=== PATIENT | female | born 1990 | race Caucasian/White ===

== ENCOUNTER 2016-06-26 16:44 | Emergency (ER) | payer MEDICAID, OTHER ==
[~2016-06-26] VITALS: Ht 162.6 cm; Wt 73.9 kg
[~2016-06-26 16:44] MED LIST: PENI500T PO
[2016-06-26 17:15] VITALS: BP 126/83; PULSE 88; RESP 18; TEMP 98.9; O2SAT 99
--- NOTE | 2016-06-26 18:07 | PD ---
HPI Chief Complaint: Oral / Dental Pain or Problem Time Seen by Provider: 18:07 Travel History International Travel<30 days: No Contact w/Intl Traveler<30days: No Traveled to known affect area: No History of Present Illness HPI 25-year-old female presents the emergency department with dental pain , swelling, and history of recurrent dental abscess. States she is not in any significant pain and is requesting an antibiotic. Patient states her left lower jaw has become more swollen since this morning. She has been taking ibuprofen with fairly good relief. She has got an appointment with dental services this coming Saturday. She has used penicillin in the past with good results. She has no known drug allergies. PFSH Past Medical History Autoimmune Disease: No Blood Disorders: No Anxiety: No Depression: No Cardiovascular Problems: No Diminished Hearing: No Gastrointestinal Disorders: No Genitourinary: Yes Neurologic: No Respiratory: No ?: Not LMP: LAST WEEK Past Surgical History Abdominal Surgery: Yes Section: Yes Other Surgery: No Social History Alcohol Use: No Tobacco Use: No Substance Use: No Allergies-Medications (Allergen,Severity, Reaction): Coded Allergies: No Known Allergies (Verified , 06/26/16) Reported Meds & Prescriptions Reported Meds & Active Scripts Active No Active Prescriptions or Reported Medications Review of Systems Except as stated in HPI: all other systems reviewed are Neg General / Constitutional: No: Fever Eyes: No: Visual changes HENT: Positive: Dental Difficulties, No: Headaches, Sore Throat, Rhinitis, Rhinorrhea, Congestion, Nosebleed, Neck Stiffness, Neck Pain, Earache Cardiovascular: No: Chest Pain or Discomfort Respiratory: No: Shortness of Breath Gastrointestinal: No: Abdominal Pain Genitourinary: No: Dysuria Musculoskeletal: No: Pain Skin: No Rash Neurologic: No: Weakness Psychiatric: No: Depression Endocrine: No: Polydipsia Hematologic/Lymphatic: No: Easy Bruising Physical Exam Narrative GENERAL: Patient appears in no acute distress. SKIN: Warm and dry. Normal color. Normal turgor. HEAD: Atraumatic. Normocephalic. EYES: Pupils equal and round. No scleral icterus. No injection or drainage. ENT: No nasal bleeding or discharge. Mucous membranes pink and moist. Patient has obvious swollen somewhat tender left lower jaw. Patient has very bad cavities to the number 20-17 teeth in the left lower jaw. No obvious drainage is noted. No Thai's angina. Altace swelling. Pharynx is clear. Airway is patent. NECK: Trachea midline. Supple and nontender. No significant lymphadenopathy. CARDIOVASCULAR: Regular rate and rhythm. RESPIRATORY: No accessory muscle use. Clear to auscultation. Breath sounds equal bilaterally. MUSCULOSKELETAL: Extremities without clubbing, cyanosis, or edema. No obvious deformities. NEUROLOGICAL: Awake and alert. No obvious cranial nerve deficits. Motor grossly within normal limits. Five out of 5 muscle strength in the arms and legs. Normal speech. PSYCHIATRIC: Appropriate mood and affect; insight and judgment normal. Data Data Last Documented VS Vital Signs Date Time Temp Pulse Resp B/P Pulse Ox O2 Delivery O2 Flow Rate FiO2 06/26/16 17:15 98.9 88 18 126/83 99 MDM Medical Decision Making Medical Screen Exam Complete: Yes Emergency Medical Condition: Yes Differential Diagnosis Dental caries. Dental pain. Dental abscess. Narrative Course Patient is medically stable at time of exam. Patient will be treated with Pen-Vee K 500 milligrams 4 times a day for 7 days. Patient also given ibuprofen 600 mg 4 times a day #40. Patient follow with dentist as scheduled on Saturday. Patient should return the emergency Department with worsening symptoms if necessary. Diagnosis Primary Impression: Dental caries Patient Instructions: Dental Abscess (ED), General Instructions Additional Instructions: Patient will be treated with Pen-Vee K 500 milligrams 4 times a day for 7 days. Patient also given ibuprofen 600 mg 4 times a day #40. Patient follow with dentist as scheduled on Saturday. Patient should return the emergency Department with worsening symptoms if necessary. Med/Other Pt SpecificInfo: Prescription(s) given Scripts Penicillin V Potassium 500 Mg [id number] Mg PO Q6H 7 Days Ref 0 Prov:Rachel Villafuerte DO 06/26/16 Disposition: 01 DISCHARGE HOME Condition: Stable Rosalino Santana Jun 26, 2016 18:07 Rosalino Santana Jun 26, 2016 18:07
[2016-06-26] MEDS ORDERED: PENI500T PO (18:17)
[2016-06-26] MEDS ORDERED: IBUP-232 PO (18:18)
== END 2016-06-26 18:26 | disposition home or self-care (01) ==
LOC: PHEFT 16:44
DX: K02.9 Dental caries, unspecified (principal)
CPT/HCPCS: 99282

== ENCOUNTER 2016-08-13 04:32 | Emergency (ER) | payer MEDICAID ==
[~2016-08-13] VITALS: Ht 162.6 cm; Wt 70.8 kg
[~2016-08-13 04:32] MED LIST changes: +IBUP-232 PO
[2016-08-13 04:37] VITALS: BP 129/68; PULSE 74; RESP 12; TEMP 98.7; O2SAT 99
[2016-08-13] MEDS ORDERED: PENI500T PO (04:51)
--- NOTE | 2016-08-13 04:52 | PD ---
HPI Chief Complaint: Oral / Dental Pain or Problem Time Seen by Provider: 04:49 Travel History International Travel<30 days: No Contact w/Intl Traveler<30days: No Traveled to known affect area: No History of Present Illness HPI 26-year-old female presents to the emergency department by private transportation for complaint of recurrent soft tissue swelling associated with poor dentition. Patient states she was just seen here in June for same complaint indicative dentist but after imaging performed a informed her that she had to pay $2000 to have dental extraction. Patient states she has not seen that amount of pneumonia in order to undergo the procedure. Patient reports in the interim she has had recurrent pain and notes some soft tissue swelling to the left mandible related dentition. Patient returns requesting antibiotic. Not diabetic. Not . Afebrile. PFSH Past Medical History Narrative Medical Poor dentition; ; no tobacco use; nursing notes reviewed Autoimmune Disease: No Blood Disorders: No Anxiety: No Depression: No Cardiovascular Problems: No Diminished Hearing: No Gastrointestinal Disorders: No Genitourinary: Yes Neurologic: No Respiratory: No Past Surgical History Abdominal Surgery: Yes Section: Yes Other Surgery: No Social History Alcohol Use: No Tobacco Use: No Substance Use: No Allergies-Medications (Allergen,Severity, Reaction): Coded Allergies: No Known Allergies (Verified , 08/13/16) Reported Meds & Prescriptions Reported Meds & Active Scripts Active Penicillin V Potassium 500 Mg Tab 500 Mg PO Q6H 10 Days Ibuprofen 600 Mg Tab 600 Mg PO Q6H PRN Review of Systems Except as stated in HPI: all other systems reviewed are Neg HENT: Positive: Dental Difficulties Physical Exam Narrative GENERAL: Well-developed well-nourished female in no acute distress no respiratory distress SKIN: Warm and dry. HEAD: Normocephalic. EYES: No scleral icterus. No injection or drainage. ENT: Mucous membranes moist ; airway is patent; multiple various with significant erosion and dental decay affecting the #19 tooth without fluctuance. No bleeding. NECK: Supple, trachea midline. No JVD or lymphadenopathy. CARDIOVASCULAR: Regular rate and rhythm without murmurs, gallops, or rubs. RESPIRATORY: Breath sounds equal bilaterally. No accessory muscle use. Data Data Last Documented VS Vital Signs Date Time Temp Pulse Resp B/P Pulse Ox O2 Delivery O2 Flow Rate FiO2 08/13/16 04:37 98.7 74 12 129/68 99 Orders Penicillin V Potassium (Veetids) (08/13/16 05:00) MDM Medical Decision Making Medical Screen Exam Complete: Yes Emergency Medical Condition: Yes Medical Record Reviewed: Yes Differential Diagnosis Dental caries, dentalgia, dental abscess, gingivitis Narrative Course Patient with multiple dental caries and poor dentition with left mandible soft tissue swelling without fluctuance around the #19 tooth for concern of early abscess formation. Patient given first dose of antibiotic penicillin in the emergency department and prescription for penicillin for outpatient use. Patient again encouraged to follow-up with dentist for dental extraction for at least this tooth. Diagnosis Primary Impression: Dental abscess Additional Impression: Dental caries Referrals: Dentist call for appointment Patient Instructions: General Instructions Additional Instructions: Complete course of antibiotic as prescribed Follow-up with dentist Return to the emergency department for any concerns or change in condition May use topical Orajel per package instructions May use acetaminophen/Tylenol every 4 hours as needed for fever 100.4F or greater or for minor pain May use ibuprofen/Advil/Motrin every 6-8 hours as needed for fever 100.4F or greater or for pain associated with inflammation Med/Other Pt SpecificInfo: Prescription(s) given Scripts Penicillin V Potassium 500 Mg [id number] Mg PO Q6H 10 Days Ref 0 Prov:Sabrina Chou MD 08/13/16 Disposition: 01 DISCHARGE HOME Condition: Stable Sabrina Chou MD Aug 13, 2016 04:52
[2016-08-13] MEDS ORDERED: PENICILLIN V POTASSIUM 500 MG TAB PO ONE (05:00)
== END 2016-08-13 05:05 | disposition home or self-care (01) ==
LOC: PHED 04:32
DX: K04.7 Periapical abscess without sinus (principal); K02.9 Dental caries, unspecified
CPT/HCPCS: 99283

== ENCOUNTER 2017-02-22 20:59 | Emergency (ER) | payer MEDICAID ==
[~2017-02-22] VITALS: Ht 162.6 cm; Wt 64.6 kg
[2017-02-22 21:08] VITALS: BP 132/69; PULSE 86; RESP 16; TEMP 98; O2SAT 100
[2017-02-22 21:25] VITALS: BP 134/68; PULSE 100; RESP 16; O2SAT 99
[2017-02-22] MEDS ORDERED: ACETAMINOPHEN 500 MG CPLT PO ONE (21:45)
[2017-02-22] MEDS ORDERED: IBUPROFEN 600 MG TAB PO ONE (21:45)
--- NOTE | 2017-02-22 21:53 | PD ---
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 This patient worried that her IUD has become dislodged. She is having her menstrual period. She's had some nonspecific pelvic cramping. No fever. Symptoms mild to moderate. No alleviating factors. PFSH Past Medical History Diminished Hearing: No Genitourinary: Yes Headaches: Yes Immunizations Current: Yes Tetanus Vaccination: > 5 Years Influenza Vaccination: No ?: Not LMP: 02/08/17 : 4 Para: 2 : 2 Past Surgical History Abdominal Surgery: Yes Section: Yes (x2) Gynecologic Surgery: Yes (C sections) Other Surgery: No Social History Alcohol Use: Yes (VERY RARE) Tobacco Use: No Substance Use: No Allergies-Medications (Allergen,Severity, Reaction): Coded Allergies: No Known Allergies (Verified Adverse Reaction, Unknown, 02/22/17) Reported Meds & Prescriptions Reported Meds & Active Scripts Active No Active Prescriptions or Reported Medications Review of Systems General / Constitutional: No: Fever Eyes: No: Visual changes HENT: No: Headaches Cardiovascular: No: Chest Pain or Discomfort Respiratory: No: Shortness of Breath Gastrointestinal: No: Abdominal Pain Genitourinary: Positive: Pelvic Pain, Vaginal Bleeding, No: Dysuria Musculoskeletal: No: Pain Skin: No Rash Neurologic: No: Weakness Psychiatric: No: Depression Endocrine: No: Polydipsia Hematologic/Lymphatic: No: Easy Bruising Physical Exam Narrative GENERAL: Well-nourished, well-developed patient in no apparent distress. SKIN: Focused skin assessment reveals no rash and nodules. Skin is Warm and dry. HEAD: Atraumatic. Normocephalic. EYES: Pupils equal and round. No scleral icterus. No injection or drainage. ENT: No nasal bleeding or discharge. Mucous membranes pink and moist. NECK: Trachea midline. No JVD. CARDIOVASCULAR: Regular rate and rhythm. No murmur appreciated. RESPIRATORY: No accessory muscle use. Clear to auscultation. Breath sounds equal bilaterally. GASTROINTESTINAL: Abdomen soft, non-tender, nondistended. Hepatic and splenic margins not palpable. MUSCULOSKELETAL: No obvious deformities. No clubbing. No cyanosis. No edema. NEUROLOGICAL: Awake and alert. No obvious cranial nerve deficits. Motor grossly within normal limits. Normal speech. PSYCHIATRIC: Appropriate mood and affect; insight and judgment normal. Pelvic: Speculum exam was done. No cervical motion tenderness. I see some scant blood in the vault but no discharge otherwise. I can see the IUD string coming through the cervix Data Data Last Documented VS Vital Signs Date Time Temp Pulse Resp B/P (MAP) Pulse Ox O2 Delivery O2 Flow Rate FiO2 02/22/17 21:20 73 16 02/22/17 21:08 98.0 132/69 (90) 100 Orders Orders Ed Urine Pregnancytest Poc (02/22/17 21:45) Acetaminophen (Tylenol) (02/22/17 21:45) Ibuprofen (Motrin) (02/22/17 21:45) Iv Access Insert/Monitor (02/22/17 22:41) Complete Rh (02/22/17 22:41) Complete Blood Count With Diff (02/22/17 22:41) Beta Hcg (Quant/Titer) (02/22/17 22:41) MDM Medical Decision Making Medical Screen Exam Complete: Yes Emergency Medical Condition: Yes Medical Record Reviewed: Yes Differential Diagnosis Ectopic , IUD complaint, pelvic infection Narrative Course I have reviewed the patient's electronic medical record. Urine I don't see any evidence of infection or IUD displacement Soft benign abdomen. It turns out her is positive on urine testing I've ordered IV placement and CBC and formal Rh and beta hCG testing Patient will likely need ultrasound Dr. Chou will complete the disposition after workup is finished, I have checked the case out to her. Scripts No Active Prescriptions or Reported Meds Bharath Garza MD Feb 22, 2017 21:53
[2017-02-22 22:25] VITALS: BP 128/66; PULSE 102; RESP 16; O2SAT 100
[2017-02-22 23:06] LABS: AUTOMATED NEUTROPHIL # 5.9 TH/MM3 (1.8-7.7); BASOPHIL % 0.5 % (0.0-2.0); EOSINOPHIL # 0.1 TH/MM3 (0-0.4); HEMATOCRIT 37.7 % (35.0-46.0); HEMOGLOBIN 12.7 GM/DL (11.6-15.3); LYMPH % 17.8 % (9.0-44.0); LYMPHOCYTE # 1.4 TH/MM3 (1.0-4.8); MEAN CELL VOLUME 82.3 FL (80.0-100.0); MEAN CORPUSCULAR HEMOGLOBIN 27.8 PG (27.0-34.0); MEAN CORPUSCULAR HGB CONC 33.8 % (32.0-36.0); MEAN PLATELET VOLUME 7.6 FL (7.0-11.0); MONO % 5.3 % (0.0-8.0); MONOCYTE # 0.4 TH/MM3 (0-0.9); NEUT % 75.4 % (16.0-70.0); PLATELET COUNT 226 TH/MM3 (150-450); RED BLOOD COUNT 4.58 MIL/MM3 (4.00-5.30); RED CELL DISTRIBUTION WIDTH 12.2 % (11.6-17.2); WHITE BLOOD COUNT 7.8 TH/MM3 (4.0-11.0)
[2017-02-22 23:25] VITALS: BP 119/67; PULSE 94; RESP 16; O2SAT 98
[2017-02-23] VITALS (7 sets, daily range): BP systolic 109–134; BP diastolic 55–83; PULSE 68–102; RESP 16; TEMP 99.5; O2SAT 96–100
--- NOTE | 2017-02-23 02:16 | RADRPT ---
EXAM DATE/TIME: 02/23/2017 01:05 [facility] COMPARISON: No previous studies available for comparison. INDICATIONS : Abnormal bleeding with IUD LAB(S): Beta-hC MEDICAL HISTORY : . SURGICAL HISTORY : section. Abdominal surgery, unspecified. ENCOUNTER: Initial ACUITY: 1 week PAIN SCORE: 0/10 LOCATION: Bilateral pelvis MEASUREMENTS: UTERUS: 8.3 x 4.5 x 4.3 cm ENDOMETRIAL STRIPE: 11 mm RIGHT OVARY: 3.1 x 2.6 x 2.7 cm LEFT OVARY: 3.9 x 3.1 x 2.2 cm FREE FLUID: Yes cul-de-sac CROWN RUMP LENGTH: NOT VISUALIZED = WKS DAYS FHR: NOT VISUALIZED BPM FINDINGS: UTERUS: Intrauterine device is present. In the lateral right fundal region, an oblong slightly greater than 1 cm hypoechoic mass is present, worrisome for cornual ectopic. RIGHT OVARY: Ovary contains no mass or significant cystic lesion. LEFT OVARY: Simple appearing slightly less than 3 cm cyst MISCELLANEOUS: Small volume of complex cul-de-sac fluid CONCLUSION: Possible early right cornual ectopic gestation. Mike Pizano MD on February 23, 2017 at 2:09 Board Certified Radiologist. This report was verified electronically.
--- NOTE | 2017-02-23 04:41 | PD ---
Physical Exam Date Seen by Provider: Feb 23, 2017 Time Seen by Provider: 23:00 Narrative Accepted in transfer of care from Dr. Garza GENERAL: Well-developed well-nourished female in no acute distress no respiratory distress rating pain 2-4/10 in intensity SKIN: Warm and dry. CARDIOVASCULAR: Regular rate and rhythm without murmurs, gallops, or rubs. RESPIRATORY: Breath sounds equal bilaterally. No accessory muscle use. GASTROINTESTINAL: Abdomen soft, suprapubic tenderness to palpation without guarding or rebound, nondistended. Data Data Last Documented VS Vital Signs Date Time Temp Pulse Resp B/P (MAP) Pulse Ox O2 Delivery O2 Flow Rate FiO2 02/23/17 04:08 99.5 95 16 109/63 100 02/23/17 02:55 Room Air Orders Orders Ed Urine Pregnancytest Poc (02/22/17 21:45) Acetaminophen (Tylenol) (02/22/17 21:45) Ibuprofen (Motrin) (02/22/17 21:45) Iv Access Insert/Monitor (02/22/17 22:41) Complete Rh (02/22/17 22:41) Complete Blood Count With Diff (02/22/17 22:41) Beta Hcg (Quant/Titer) (02/22/17 22:41) Us Pelvis Preg(Sgl/1st Gestat) (02/22/17 ) Rhogam Only (02/23/17 02:55) Labs Laboratory Tests Test 02/22/17 22:55 White Blood Count 7.8 TH/MM3 Red Blood Count 4.58 MIL/MM3 Hemoglobin 12.7 GM/DL Hematocrit 37.7 % Mean Corpuscular Volume 82.3 FL Mean Corpuscular Hemoglobin 27.8 PG Mean Corpuscular Hemoglobin Concent 33.8 % Red Cell Distribution Width 12.2 % Platelet Count 226 TH/MM3 Mean Platelet Volume 7.6 FL Neutrophils (%) (Auto) 75.4 % Lymphocytes (%) (Auto) 17.8 % Monocytes (%) (Auto) 5.3 % Eosinophils (%) (Auto) 1.0 % Basophils (%) (Auto) 0.5 % Neutrophils # (Auto) 5.9 TH/MM3 Lymphocytes # (Auto) 1.4 TH/MM3 Monocytes # (Auto) 0.4 TH/MM3 Eosinophils # (Auto) 0.1 TH/MM3 Basophils # (Auto) 0.0 TH/MM3 CBC Comment DIFF FINAL Differential Comment Human Chorionic Gonadotropin, Quant 4824 MIU/ML MDM Medical Record Reviewed: Yes Supervised Visit with FLORI: No Interpretation(s) Last Impressions Obstetrics Ultrasound 02/22/17 0000 Signed Impressions: Service Date/Time: Thursday, February 23, 2017 01:05 - CONCLUSION: Possible early right cornual ectopic gestation. Mike Pizano MD CBC & BMP Diagram 02/22/17 22:55 Vital Signs Date Time Temp Pulse Resp B/P (MAP) Pulse Ox O2 Delivery O2 Flow Rate FiO2 02/23/17 04:08 99.5 95 16 109/63 100 02/23/17 02:55 68 16 116/66 (83) 98 Room Air 02/23/17 01:50 84 16 130/77 (94) 96 Room Air 02/23/17 00:25 95 16 134/83 (100) 100 Room Air 02/23/17 00:20 104 16 02/22/17 23:50 16 02/22/17 23:50 16 02/22/17 23:25 94 16 119/67 (84) 98 Room Air 02/22/17 22:25 102 16 128/66 (86) 100 Room Air 02/22/17 21:25 100 16 134/68 (90) 99 Room Air 02/22/17 21:20 73 16 02/22/17 21:08 98.0 86 16 132/69 (90) 100 Differential Diagnosis Please refer to Dr. Garza's dictation Narrative Course Accepted in transfer of care from Dr. Garza for follow-up of pending labs and reports may require ultrasound; ultrasound has been ordered in anticipation of patient's quantitative hCG being elevated Patient resting comfortably waiting on lab results Ultrasound at bedside patient resting comfortably denies heavy bleeding at this time. Ultrasound resulted and report per radiologist is concerning for ectopic Patient examined and abdomen is tender to the suprapubic area with direct palpation no guarding or rebound blood pressure is 116/66 heart rate 104; call placed to OB ED and case discussed with Dr. Soni who states patient will need to be transferred from [facility] emergency department to [facility] emergency department and she will see the patient in the [facility] emergency department and contact the on-call landscape horticulture instructor Dr. Mckay Call placed to Dr. Mckay she is aware the patient has been identified to have an abnormal ultrasound concerning for ectopic with free fluid in the pelvis is aware the patient will be transferred from [facility] emergency department to [facility] emergency department and that the patient is being evaluated by Dr. Soni. Patient informed of discharge from the emergency department plan to the ED at [facility]; Dr Villafuerte notified of plan to transfer ED to [facility] ED At 4:35 AM EMS has arrived to transport the patient emergency department for emergency department; Dr Villafuerte notified ED charge notified; Dr Soni notified Physician Communication Physician Communication discussed with Dr Soni; discussed with Dr Mckay Diagnosis Primary Impression: , ectopic, cornual or cervical Scripts No Active Prescriptions or Reported Meds Sabrina Chou MD Feb 23, 2017 04:41
--- NOTE | 2017-02-23 07:41 | PD ---
Data Data Last Documented VS Vital Signs Date Time Temp Pulse Resp B/P (MAP) Pulse Ox O2 Delivery O2 Flow Rate FiO2 02/23/17 04:40 02/23/17 04:10 90 16 98 Room Air 02/23/17 04:08 99.5 Orders Orders Ed Urine Pregnancytest Poc (02/22/17 21:45) Acetaminophen (Tylenol) (02/22/17 21:45) Ibuprofen (Motrin) (02/22/17 21:45) Iv Access Insert/Monitor (02/22/17 22:41) Complete Rh (02/22/17 22:41) Complete Blood Count With Diff (02/22/17 22:41) Beta Hcg (Quant/Titer) (02/22/17 22:41) Us Pelvis Preg(/ Gestat) (02/22/17 ) Rhogam Only (02/23/17 02:55) Comprehensive Metabolic Panel (02/23/17 07:21) Methotrexate Pf Inj (Methotrexate Pf Inj (02/23/17 08:30) Medroxyprogesterone Inj (Depo-Provera In (02/23/17 07:45) Ed Discharge Order (02/23/17 08:22) Labs Laboratory Tests Test 02/22/17 22:55 02/23/17 07:35 White Blood Count 7.8 TH/MM3 Red Blood Count 4.58 MIL/MM3 Hemoglobin 12.7 GM/DL Hematocrit 37.7 % Mean Corpuscular Volume 82.3 FL Mean Corpuscular Hemoglobin 27.8 PG Mean Corpuscular Hemoglobin Concent 33.8 % Red Cell Distribution Width 12.2 % Platelet Count 226 TH/MM3 Mean Platelet Volume 7.6 FL Neutrophils (%) (Auto) 75.4 % Lymphocytes (%) (Auto) 17.8 % Monocytes (%) (Auto) 5.3 % Eosinophils (%) (Auto) 1.0 % Basophils (%) (Auto) 0.5 % Neutrophils # (Auto) 5.9 TH/MM3 Lymphocytes # (Auto) 1.4 TH/MM3 Monocytes # (Auto) 0.4 TH/MM3 Eosinophils # (Auto) 0.1 TH/MM3 Basophils # (Auto) 0.0 TH/MM3 CBC Comment DIFF FINAL Differential Comment Human Chorionic Gonadotropin, Quant 4824 MIU/ML Blood Urea Nitrogen 10 MG/DL Creatinine 0.71 MG/DL Random Glucose 101 MG/DL Total Protein 7.2 GM/DL Albumin 3.9 GM/DL Calcium Level 9.0 MG/DL Alkaline Phosphatase 43 U/L Aspartate Amino Transf (AST/SGOT) 13 U/L Alanine Aminotransferase (ALT/SGPT) 18 U/L Total Bilirubin 0.5 MG/DL Sodium Level 141 MEQ/L Potassium Level 3.5 MEQ/L Chloride Level 108 MEQ/L Carbon Dioxide Level 29.2 MEQ/L Anion Gap 4 MEQ/L Estimat Glomerular Filtration Rate 98 ML/MIN MDM Supervised Visit with FLORI: No Narrative Course Patient care assumed from previous provider at shift change, this is a 26 -year-old female initially seen in [place] emergency department diagnosed with ectopic there, 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 Soni of the OB/ [facility] service and has recommendations for methotrexate one dose here and follow- up was arranged for her by Dr. Soni. Awaiting for LFTs and per Dr. Soni if normal the patient can be discharged home. I discussed with the patient signs symptoms that should prompt emergent return to the ER Diagnosis Primary Impression: , ectopic, cornual or cervical Scripts No Active Prescriptions or Reported Meds Disposition: 01 DISCHARGE HOME Condition: Stable Mo Kenney MD Feb 23, 2017 07:41
[2017-02-23] MEDS ORDERED: medroxyPROGESTERone ACETATE SUSP 150 MG/ML SYRINGE IM ONE (07:45)
[2017-02-23 08:04] LABS: ALBUMIN 3.9 GM/DL (3.4-5.0); ALT (GPT) 18 U/L (10-53); AST (GOT) 13 U/L (15-37); BICARBONATE 29.2 MEQ/L (21.0-32.0); BLOOD UREA NITROGEN 10 MG/DL (7-18); CHLORIDE 108 MEQ/L (98-107); CREATININE 0.71 MG/DL (0.50-1.00); GLOMERULAR FILTRATION RATE 98 ML/MIN (>89); GLUCOSE,RANDOM 101 MG/DL (74-106); SODIUM (NA) 141 MEQ/L (136-145)
[2017-02-23 08:06] LABS: ALKALINE PHOSPHATASE 43 U/L (45-117); TOTAL BILIRUBIN ADULT 0.5 MG/DL (0.2-1.0); TOTAL PROTEIN 7.2 GM/DL (6.4-8.2)
--- NOTE | 2017-02-23 08:06 | PD.CONS ---
History & Physical H&P OBGYN Consultation H&P HPI: Pt is 26y/o who was sent from [facility] ED for a cornual ectopic. Pt has a h/o CSx2 and TABx2. She had a Paragard IUD placed 5yrs ago. She reports that she started having some pelvic pain on Saturday. She took tylenol and it improved. Yesterday, however, she started having additional pain. She also has a small amt of spotting when using the BR. OBHx: CSx2 TABx2 PMH: Rh neg PSH: CSx2 D&Cx1 FH: non-contributory SH: no tobacco, etoh, illicits Meds: none Aller: NKDA PE: VS: afebrile, stable vitals General: well developed, well nourished, no acute distress HEENT: normocephalic atraumatic, extraocular movements intact, neck supple Abdomen: slightly TTP in RLQ, no guarding or rebound Extremities: full range of motion Skin: normal coloration, no rashes, no suspicious skin lesions noted Neurologic: cranial nerves 2-12 grossly intact, normal muscle tone, normal gait Psychiatric: normal mood and affect, appropriate Pelvic: small amount of dark blood in vault, IUD strings seen Labs: Hgb 12.7 Plts 2226 hCG 4824 US: UTERUS: Intrauterine device is present. In the lateral right fundal region, an oblong slightly greater than 1 cm hypoechoic mass is present, worrisome for cornual ectopic. RIGHT OVARY: Ovary contains no mass or significant cystic lesion. LEFT OVARY: Simple appearing slightly less than 3 cm cyst MISCELLANEOUS: Small volume of complex cul-de-sac fluid CONCLUSION: Possible early right cornual ectopic gestation. Procedure: The R/B/A were discussed with pt and verbal consent was obtained for IUD removal. A speculum was placed into the vagina. The IUD strings were grasped with a ring forcep. Gentle traction was applied and the device was removed intact and discarded. The pt tolerated well. A/P: 26y/o with cornual ectopic , unruptured, stable. Ectopic - vitals stable - gestational sac < 5cm, no cardiac activity; able to follow-up - Rh neg --> Rhogam given - check CMP - MTX given 60mg IM x1 ordered - counseled not to take PNV, folic acid, NSAIDs - tylenol for mild pain and cramps that may occur from MTX - STRICT ectopic precautions, advised to come back with abdominal pain despite medication, vaginal bleeding or other concerning signs/symptoms - instructions to return day 4 and 7 in discharge papers (signed by pt and in chart) - Consent: Risks, benefits and alternatives of methotrexate therapy discussed with the patient. She is hemodynamically stable at this time. Her laboratoy assessment is within normal limits and she has no other contraindications to treatment. I emphasized her need to be compliant with [facility] and that this could take several weeks to resolve. We discussed approximately a 10-20% risk of requiring a second dose of methotrexate if fall in HCG if not sufficient between 4 and 7 days. If she goes on to need another dose of MTX, there is a 10% risk of subsequently needing surgery. I stated that she should expect abdominal pain and diarrhea over the next week as a side effect of the MTX. However, if she experiences severe and sudden abdominal pain, this could be a sign of a ruptured ectopic and she should present to the ED immediately. I strongly emphasized that she must avoid as this could complicate her follow up. She agreed to use Depo for control until resolution of this . This was given in the ED. All questions were answered. Phone numbers: - Patient's cell: [phone] - Pt's partner's (Felipe) cell: [phone] Jacqueline Soni MD Feb 23, 2017 08:06
[2017-02-23] MEDS ORDERED: METHOTREXATE SOD PF 50 MG/2 ML VIAL SQ ONE (08:30)
== END 2017-02-23 09:20 | disposition home or self-care (01) ==
LOC: PHED 20:59 → NEPC 02-23 09:20
DX: O00.80 Other ectopic pregnancy without intrauterine pregnancy (principal)
CPT/HCPCS: 58301; 76801; 80053; 84702; 84703; 85025; 90384; 96372; 99285; J1050; J9250; J2790

== ENCOUNTER 2017-02-23 15:44 | Emergency (ER) | payer MEDICAID ==
[~2017-02-23] VITALS: Ht 162.6 cm; Wt 62.5 kg
[2017-02-23] VITALS (7 sets, daily range): BP systolic 89–133; BP diastolic 52–75; PULSE 94–113; RESP 16–20; TEMP 98; O2SAT 100
[2017-02-23 17:01] LABS: AUTOMATED NEUTROPHIL # 13.6 TH/MM3 (1.8-7.7); BASOPHIL % 0.1 % (0.0-2.0); EOSINOPHIL % 0.1 % (0.0-4.0); HEMATOCRIT 33.5 % (35.0-46.0); HEMOGLOBIN 11.3 GM/DL (11.6-15.3); LYMPH % 5.5 % (9.0-44.0); LYMPHOCYTE # 0.8 TH/MM3 (1.0-4.8); MEAN CELL VOLUME 83.9 FL (80.0-100.0); MEAN CORPUSCULAR HEMOGLOBIN 28.3 PG (27.0-34.0); MEAN CORPUSCULAR HGB CONC 33.7 % (32.0-36.0); MEAN PLATELET VOLUME 7.6 FL (7.0-11.0); MONO % 2.5 % (0.0-8.0); MONOCYTE # 0.4 TH/MM3 (0-0.9); NEUT % 91.8 % (16.0-70.0); PLATELET COUNT 226 TH/MM3 (150-450); RED CELL DISTRIBUTION WIDTH 12.3 % (11.6-17.2); WHITE BLOOD COUNT 14.8 TH/MM3 (4.0-11.0)
--- NOTE | 2017-02-23 17:09 | PD ---
HPI . 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 The first occurred about 11 PM last night and the second occurred about 4 PM today. The patient was seen here last night for pelvic pain and bleeding. She was ultimately found to have an ectopic . She was treated with methotrexate. She was then discharged home. She reports some heavy vaginal bleeding. She states she's passed several clots in the toilet. She has used 4 pads today. She states that she changes the past before they are completely soaked. Her last had change was about an hour ago. The patient reports dizziness on standing. [facility] Past Medical History Diminished Hearing: No Genitourinary: Yes Headaches: Yes Immunizations Current: Yes Tetanus Vaccination: > 5 Years Influenza Vaccination: No ?: LMP: 01/09/17 : 5 Para: 2 Miscarriage: 1 : 2 Past Surgical History Abdominal Surgery: Yes Section: Yes (x2) Gynecologic Surgery: Yes (C sections) Other Surgery: No Social History Alcohol Use: No Tobacco Use: No Substance Use: No Allergies-Medications (Allergen,Severity, Reaction): Coded Allergies: No Known Allergies (Verified Allergy, Unknown, 02/23/17) Reported Meds & Prescriptions Reported Meds & Active Scripts Active No Active Prescriptions or Reported Medications Review of Systems Except as stated in HPI: all other systems reviewed are Neg Genitourinary: Positive: Pelvic Pain, Vaginal Bleeding Neurologic: Positive: Weakness, Dizziness, Syncope Physical Exam Narrative GENERAL: Awake and alert and in no acute distress. SKIN: warm/dry. Pale. HEAD: Normocephalic. Atraumatic. EYES: Pupils equal and round. No scleral icterus. No injection or drainage. ENT: No nasal bleeding or discharge. Mucous membranes pink and moist. NECK: Trachea midline. Full range of motion without pain.. CARDIOVASCULAR: Regular rate and rhythm. Heart sounds normal. RESPIRATORY: No accessory muscle use. Clear to auscultation. Breath sounds equal bilaterally. GASTROINTESTINAL: Abdomen soft. Nontender. Bowel sounds present. Nondistended. : pad in place. It has scant blood. MUSCULOSKELETAL: No obvious deformities. NEUROLOGICAL: Awake and alert. No obvious cranial nerve deficits. Motor grossly within normal limits. Normal speech. PSYCHIATRIC: Appropriate mood and affect; insight and judgment normal. Data Data Last Documented VS Vital Signs Date Time Temp Pulse Resp B/P (MAP) Pulse Ox O2 Delivery O2 Flow Rate FiO2 02/23/17 18:54 107 16 110/65 (80) 100 Room Air 02/23/17 15:48 98.0 Orders Orders Complete Blood Count With Diff (02/23/17 16:09) ^ Saline Lock (02/23/17 16:09) Orthostatic Vital Signs (02/23/17 16:09) Sodium Chlor 0.9% 1000 Ml Inj (Ns 1000 M (02/23/17 17:15) Morphine Inj (Morphine Inj) (02/23/17 18:45) Ondansetron Inj (Zofran Inj) (02/23/17 18:45) Orthostatic Vital Signs (02/23/17 18:37) Labs Laboratory Tests Test 02/23/17 16:50 White Blood Count 14.8 TH/MM3 Red Blood Count 4.00 MIL/MM3 Hemoglobin 11.3 GM/DL Hematocrit 33.5 % Mean Corpuscular Volume 83.9 FL Mean Corpuscular Hemoglobin 28.3 PG Mean Corpuscular Hemoglobin Concent 33.7 % Red Cell Distribution Width 12.3 % Platelet Count 226 TH/MM3 Mean Platelet Volume 7.6 FL Neutrophils (%) (Auto) 91.8 % Lymphocytes (%) (Auto) 5.5 % Monocytes (%) (Auto) 2.5 % Eosinophils (%) (Auto) 0.1 % Basophils (%) (Auto) 0.1 % Neutrophils # (Auto) 13.6 TH/MM3 Lymphocytes # (Auto) 0.8 TH/MM3 Monocytes # (Auto) 0.4 TH/MM3 Eosinophils # (Auto) 0.0 TH/MM3 Basophils # (Auto) 0.0 TH/MM3 CBC Comment DIFF FINAL Differential Comment MDM Medical Decision Making Medical Screen Exam Complete: Yes Emergency Medical Condition: Yes Medical Record Reviewed: Yes (she was seen last night and diagnosed with a R cornual ectopic . Her IUD was removed. She was treated with methotrexate. She was also given a Depo-Provera shot. She was Rh- so she was given RhoGAM. Her hemoglobin last night was 12.7.) Differential Diagnosis Differential diagnosis of pelvic pain includes but is not limited to UTI, PID, ectopic , spontaneous AB, constipation, viral illness Narrative Course Patient presents status post 2 syncopal episodes at home following treatment for an ectopic . I have ordered a liter of fluid. CBC Diagram 02/23/17 16:50 Her orthostatic vital signs were done using an automated blood pressure and heart rate monitor. The tech reports that her standing heart rate was 252. The nurse has gone back into recheck this and reports that her standing heart rate was about 130. Following a liter of IV fluids, the patient's heart rate and blood pressure now stable on standing. She is stable for discharge to home. She will be encouraged to present to the main ED he has any further problems following her treatment for ectopic . Critical Care Narrative Aggregate critical care time was 35 minutes. Time to perform other separately billable procedures was not included in the critical care time. My time did not include minutes spent treating any other patients simultaneously or on activities that did not directly contribute to the patient's treatment. The services I provided to this patient were to treat and/or prevent clinically significant deterioration due to orthostatic hypotension status post treatment for ectopic , rule out hemorrhagic shock. I provided critical care services requiring my management, as noted below: Chart data review, documentation time, medication orders and management, vital sign assessments/reviewing monitor data, ordering and reviewing lab tests, ordering and interpreting/reviewing x-rays and diagnostic studies, care of the patient and discussion of the patient with the admitting physicians Diagnosis Primary Impression: Orthostatic hypotension Patient Instructions: Ectopic (DC), General Instructions Additional Instructions: Go to the main ED in [facility] if you experience any further complications related to this ectopic . Scripts No Active Prescriptions or Reported Meds Disposition: 01 DISCHARGE HOME Condition: Stable Andra Shaw MD Feb 23, 2017 17:09
[2017-02-23] MEDS ORDERED: SODIUM CHLOR 0.9% 1000 ML INJ 1,000 ML IV ONE (17:15)
[2017-02-23] MEDS ORDERED: ONDANSETRON HCL 4 MG/2 ML VIAL IV PUSH ONE (18:45)
[2017-02-23] MEDS ORDERED: MORPHINE SULFATE 2 MG/ML INJ IV PUSH ONE (18:45)
== END 2017-02-23 19:44 | disposition home or self-care (01) ==
LOC: PHED 15:44
DX: O00.90 Unspecified ectopic pregnancy without intrauterine pregnancy (principal); I95.1 Orthostatic hypotension; R55 Syncope and collapse
CPT/HCPCS: 85025; 96361; 96374; 96375; 99291; J2270; J2405; J7030

== ENCOUNTER 2017-02-26 13:38 | Emergency (ER) | payer MEDICAID ==
[~2017-02-26] VITALS: Ht 167.6 cm; Wt 65.0 kg
[2017-02-26 13:54] VITALS: BP 129/75; PULSE 100; RESP 19; TEMP 99.1; O2SAT 100
--- NOTE | 2017-02-26 14:31 | PD ---
HPI Chief Complaint: Related Problem Time Seen by Provider: 14:01 Travel History International Travel<30 days: No Contact w/Intl Traveler<30days: No Traveled to known affect area: No History of Present Illness HPI Patient is a 26-year-old female presents emergency department for evaluation of ectopic . The patient was seen a few days ago for lower quadrant abdominal pain. She is familiar to me from that visit. She had a dose of methotrexate there is as well as rhogam at that time. Patient has not had any symptoms denies any abdominal pain vaginal bleeding fevers nausea vomiting diarrhea constipation. States her symptoms are resolved, context as above, associated signs symptoms as above, location as above. PFSH Past Medical History Medical History: Denies Significant Hx Diminished Hearing: No Genitourinary: Yes Headaches: Yes Immunizations Current: Yes Tetanus Vaccination: > 5 Years Influenza Vaccination: No ?: : 5 Para: 2 Miscarriage: 1 : 2 Ectopic : Yes (METHOTREXATE) Past Surgical History Abdominal Surgery: Yes Section: Yes (x2) Gynecologic Surgery: Yes (C sections) Other Surgery: No Social History Alcohol Use: No Tobacco Use: No Substance Use: No Allergies-Medications (Allergen,Severity, Reaction): Coded Allergies: No Known Allergies (Verified Allergy, Unknown, 02/26/17) Reported Meds & Prescriptions Reported Meds & Active Scripts Active No Active Prescriptions or Reported Medications Review of Systems Except as stated in HPI: all other systems reviewed are Neg Physical Exam Narrative GENERAL: Well-nourished, well-developed patient. SKIN: Focused skin assessment warm/dry. HEAD: Normocephalic. EYES: No scleral icterus. No injection or drainage. NECK: Supple, trachea midline. No JVD or lymphadenopathy. CARDIOVASCULAR: Regular rate and rhythm without murmurs, gallops, or rubs. RESPIRATORY: Breath sounds equal bilaterally. No accessory muscle use. GASTROINTESTINAL: Abdomen soft, non-tender, nondistended. MUSCULOSKELETAL: No cyanosis, or edema. BACK: Nontender without obvious deformity. No CVA tenderness. Data Data Last Documented VS Vital Signs Date Time Temp Pulse Resp B/P (MAP) Pulse Ox O2 Delivery O2 Flow Rate FiO2 02/26/17 13:54 99.1 100 19 129/75 (93) 100 Orders Orders Beta Hcg (Quant/Titer) (02/26/17 14:01) Ed Discharge Order (02/26/17 15:14) Labs Laboratory Tests Test 02/26/17 13:10 Human Chorionic Gonadotropin, Quant 3430 MIU/ML MDM Medical Decision Making Medical Screen Exam Complete: Yes Emergency Medical Condition: Yes Differential Diagnosis Ectopic , resolving ectopic , Rh mismatch, . Narrative Course Patient roomed in emergency department, her hCG has dropped from 4800 - 3400. This was discussed with Dr. Evangelista who is the OB hospitalist on-call today. He states they would expect a 15% drop in hCG and this represents a 30% drop. Which is an acceptable level. At this time is recommended to her by both Dr. Evangelista and myself for the patient have repeat Quant strong once a week returning to the emergency Department with any red flag signs including abdominal pain vaginal bleeding nausea or vomiting. The patient is recommended to follow-up with an [facility] and given the name of the person on-call, also advised her that she could return to the emergency department should she need. Diagnosis Primary Impression: Ectopic Referrals: Mike Pal MD Additional Instructions: He need to have a repeat hCG drawn in 7 days. Follow-up with an [facility] or return to the emergency department. Return to emergency Department with any sudden onset abdominal pain weakness fatigue or vaginal bleeding. Scripts No Active Prescriptions or Reported Meds Disposition: 01 DISCHARGE HOME Condition: Stable Mo Kenney MD Feb 26, 2017 14:31
== END 2017-02-26 15:20 | disposition home or self-care (01) ==
LOC: PHEFT 13:38
DX: O00.90 Unspecified ectopic pregnancy without intrauterine pregnancy (principal)
CPT/HCPCS: 84702; 99283